=== PATIENT | female | born 1975 | race Asian ===

== ENCOUNTER 2018-04-18 05:43 | Emergency (ER) | payer OTHER ==
[2018-04-18] MEDS: ACETAMINOPHEN 500 MG TAB PO (06:26)
[2018-04-18] MEDS: ONDANSETRON (ODT) 4 MG TAB ODT (06:30)
[2018-04-18 06:44] LABS: ADD UMIC NO; UR ASCORBIC ACID NEGATIVE (NEGATIVE); UR BILIRUBIN (Dip) NEGATIVE (NEGATIVE); UR BLOOD (Dip) NEGATIVE (NEGATIVE); UR CLARITY CLEAR (CLEAR); UR COLOR COLORLESS (YELLOW); UR GLUCOSE (Dip) NEGATIVE (NEGATIVE); UR KETONES (Dip) NEGATIVE (NEGATIVE); UR LEUKOCYTE ESTERASE (Dip) NEGATIVE Leu/ul (NEGATIVE); UR NITRITE (Dip) NEGATIVE (NEGATIVE); UR SPECIFIC GRAVITY (Dip) 1.003 (1.003-1.030); UR TOTAL PROTEIN (Dip) NEGATIVE (NEGATIVE); UR UROBILINOGEN (Dip) NEGATIVE (NEGATIVE)
== END 2018-04-18 10:22 | disposition home or self-care (01) ==
LOC: FTE 05:43
DX: N83.201 Unspecified ovarian cyst, right side (principal); E11.9 Type 2 diabetes mellitus without complications; R10.2 Pelvic and perineal pain; Z79.84 Long term (current) use of oral hypoglycemic drugs
CPT/HCPCS: 74176; 76856; 81003; 81025; 99285-25

== ENCOUNTER 2018-10-02 07:42 | Emergency (ER) | payer OTHER ==
[2018-10-02] MEDS: HYDROCODONE/APAP (5/325) TAB PO (09:18)
== END 2018-10-02 11:02 | disposition home or self-care (01) ==
LOC: FTE 07:42
DX: M65.4 Radial styloid tenosynovitis [de Quervain] (principal); E11.9 Type 2 diabetes mellitus without complications; Z79.84 Long term (current) use of oral hypoglycemic drugs
CPT/HCPCS: 73130; 73130-RT; 76536; 99284-25

== ENCOUNTER 2018-10-04 10:28 | Emergency (ER) | payer OTHER ==
[2018-10-04] MEDS: ACETAMINOPHEN 325 MG TAB PO (11:44)
== END 2018-10-04 12:14 | disposition home or self-care (01) ==
LOC: FTE 10:28
DX: M79.644 Pain in right finger(s) (principal); E11.9 Type 2 diabetes mellitus without complications; Z79.84 Long term (current) use of oral hypoglycemic drugs
CPT/HCPCS: 29130; 99283-25

== ENCOUNTER 2018-11-17 08:18 | Emergency (ER) | payer OTHER | END 2018-11-17 11:08 | disposition home or self-care (01) | LOC: FTE 08:18 | DX: J10.1 Influenza due to other identified influenza virus with other respiratory manifestations (principal); I10 Essential (primary) hypertension; E11.9 Type 2 diabetes mellitus without complications; Z79.84 Long term (current) use of oral hypoglycemic drugs | CPT/HCPCS: 71045; 87400; 99284-25 ==

== ENCOUNTER 2018-11-21 20:51 | Emergency (ER) | payer OTHER ==
[2018-11-22] MEDS: ALBUTEROL 0.083% (NEB) 2.5 MG/3 ML AMP HHN (01:40)
[2018-11-22] MEDS: AZITHROMYCIN 250 MG TAB PO (01:42)
[2018-11-22] MEDS: HYDROCODONE/HOMATROPINE 5ML CUP PO (01:42)
== END 2018-11-22 02:25 | disposition home or self-care (01) ==
LOC: FTE 20:51
DX: R05 Cough (principal); R50.9 Fever, unspecified; E11.9 Type 2 diabetes mellitus without complications; I10 Essential (primary) hypertension; Z79.84 Long term (current) use of oral hypoglycemic drugs
CPT/HCPCS: 94664; 99283-25

== ENCOUNTER 2019-04-27 17:36 | Emergency (ER) | payer OTHER | END 2019-04-27 18:48 | disposition home or self-care (01) | LOC: FTE 17:36 | DX: S61.214A Laceration without foreign body of right ring finger without damage to nail, initial encounter (principal); S61.216A Laceration without foreign body of right little finger without damage to nail, initial encounter; I10 Essential (primary) hypertension; E11.9 Type 2 diabetes mellitus without complications; W26.8XXA Contact with other sharp object(s), not elsewhere classified, initial encounter; Y92.9 Unspecified place or not applicable; Z79.84 Long term (current) use of oral hypoglycemic drugs | CPT/HCPCS: 12001; 99283-25 ==